=== PATIENT | female | born 1985 | race Caucasian/White ===

== ENCOUNTER 2018-08-31 09:13 | Emergency (ER) | payer MEDICAID ==
[~2018-08-31] VITALS: Ht 152.4 cm; Wt 72.1 kg
[2018-08-31 09:21] VITALS: Ht 152.4 cm; Wt 72.1 kg
[2018-08-31 14:11] VITALS: BP 109/68
== END 2018-08-31 14:11 | disposition home or self-care (01) ==
LOC: ED 09:13
DX: J20.9 Acute bronchitis, unspecified (principal)
CPT/HCPCS: J7512; J7613; J7644

== ENCOUNTER 2018-09-22 09:14 | Emergency (ER) | payer MEDICAID ==
[~2018-09-22] VITALS: Ht 152.4 cm; Wt 71.7 kg
[2018-09-22 09:19] VITALS: BP 115/79; Ht 152.4 cm; Wt 71.7 kg
[2018-09-22 10:25] LABS: microscopic required? YES
[2018-09-22 14:40] LABS: UA SPECIFIC GRAVITY 1.025 (1.005-1.035)
[2018-09-22 14:41] LABS: urine erythrocyte 1+ (NEGATIVE)
== END 2018-09-22 11:06 | disposition home or self-care (01) ==
LOC: ED 09:14
PROVIDERS: Emergency Medicine
DX: N39.0 Urinary tract infection, site not specified (principal)

== ENCOUNTER 2019-04-12 14:21 | Emergency (ER) | payer MEDICAID ==
[~2019-04-12] VITALS: Ht 152.4 cm; Wt 76.2 kg
[2019-04-12 14:37] VITALS: Ht 152.4 cm; Wt 76.2 kg
[2019-04-12 17:27] VITALS: BP 105/64
== END 2019-04-12 17:27 | disposition home or self-care (01) ==
LOC: ED 14:21
DX: L50.0 Allergic urticaria (principal); M06.9 Rheumatoid arthritis, unspecified; D84.9 Immunodeficiency, unspecified; Z98.890 Other specified postprocedural states
CPT/HCPCS: J1200; J2930